=== PATIENT | male | born 1965 | race Two or more races ===

== ENCOUNTER 2024-05-18 06:50 | Day surgery (SDC) | payer MEDICAID, SELFPAY ==
[2024-05-17 13:30] VITALS: BMI 24.3
[2024-05-18] VITALS (8 sets, daily range): BP systolic 127–153; BP diastolic 79–106; PULSE 68–79; RESP 12–18; TEMP 36.6–37; O2SAT 96–100; BMI 24.1
[2024-05-18] MEDS: DiphenhydrAMINE INJ 50 MG/ML VIAL 25 MG IV (08:00)
[2024-05-18] MEDS: MIDAZOLAM INJ 1 MG/ML VIAL 2 ML (ASD USE ONLY) 2 MG IV (08:02)
[2024-05-18] MEDS: fentaNYL CIT INJ 50 mCg/ML AMP 2ML (ASD USE ONLY) IV (08:04)
== END 2024-05-18 09:08 | disposition home or self-care (01) ==
PROVIDERS: PCP Nurse Practitioner Family; Referring Provider Surgery; Visit Provider Surgery
PROC: 0DBE8ZX Excision of Large Intestine, Via Natural or Artificial Opening Endoscopic, Diagnostic (ICD-10-PCS; CPT 45380; principal; 2024-05-18 07:30)
DX: K64.1 Second degree hemorrhoids (principal); K64.4 Residual hemorrhoidal skin tags; K57.31 Diverticulosis of large intestine without perforation or abscess with bleeding
CPT/HCPCS: 45378; J1200; J2250; J3010